=== PATIENT | male | born 1990 | race Caucasian/White ===

== ENCOUNTER 2022-04-12 04:04 | Emergency (ER) | payer OTHER ==
[~2022-04-12] VITALS: Ht 177.8 cm; Wt 108.9 kg
[2022-04-12 04:10] VITALS: BP_SYST 135
--- NOTE | 2022-04-12 04:17 | NUR ---
Patient to ER bed 8 to gown for evaluation. Side rails up. Report given to Radha CELESTIN(reg).
--- NOTE | 2022-04-12 05:00 | NUR ---
ASSESSED, AO X4, SPEECH CLEAR AND COHERENT NOT IN ANY DISTRESS.PIV #20 STARTED TO RAC , LABS DRAWN AND SENT ORDERED. PATIENT TOLERATED PROCEDURE WELL
--- NOTE | 2022-04-12 06:15 | NUR ---
Electric [employer] Operator at the bedside for blood drawn.
--- NOTE | 2022-04-12 06:16 | NUR ---
ER at bedside examining patient.
[2022-04-12 06:41] LABS: BASOPHILS # (AUTO) 0.1 K/uL (0.0-0.2); BASOPHILS % (AUTO) 1.1 % (0.0-2.0); EOSINOPHILS # (AUTO) 0.1 K/uL (0.0-0.4); EOSINOPHILS % (AUTO) 1.1 % (0.0-4.0); HEMATOCRIT 43.5 % (36-54); HEMOGLOBIN 14.8 g/dL (14.0-18.0); LYMPHOCYTES # (AUTO) 0.8 K/uL (1.0-5.5); LYMPHOCYTES % (AUTO) 6.3 % (20.5-51.5); MEAN CORPUSCULAR HEMOGLOBIN 30 pg (27-31); MEAN CORPUSCULAR HGB CONC 34 % (32-36); MEAN CORPUSCULAR VOLUME 87 fL (79.0-98.0); MONOCYTES # (AUTO) 1.1 K/uL (0.0-1.0); MONOCYTES % (AUTO) 8.8 % (1.7-9.3); NEUTROPHILS # (AUTO) 9.9 K/uL (1.8-7.7); NEUTROPHILS % (AUTO) 82.7 % (40.0-70.0); PLATELET COUNT (AUTO) 231 K/uL (130-430); RED BLOOD CELL COUNT(AUTO) 4.98 MIL/uL (4.2-6.2); RED CELL DISTRIBUTION WIDTH 13.1 % (9.0-15.0)
[2022-04-12 06:58] LABS: CALCIUM 8.7 mg/dL (8.4-11.0); CREATININE 1.02 mg/dL (0.55-1.30)
[2022-04-12 07:05] LABS: ALBUMIN 3.8 g/dL (3.4-4.8); TOTAL BILIRUBIN 0.5 mg/dL (0.0-1.0)
[2022-04-12] MEDS ORDERED: LOM2.5 PO (07:20)
--- NOTE | 2022-04-12 07:32 | NUR ---
Patient given written and verbal discharge instructions and verbalizes understanding. ER MD discussed with patient the results and treatment provided. Patient in stable condition. ID arm band removed. IV catheter removed intact and dressing applied, no active bleeding. Opportunity for questions provided and answered. Medication side effect fact sheet provided.
--- NOTE | 2022-04-12 07:32 | NUR ---
PT AWAITING TRANSPORTATION FROM FAMILY. CONTACTED [phone] [facility] [place].
[2022-04-12 07:33] VITALS: BP_SYST 134
== END 2022-04-12 07:33 | disposition home or self-care (01) ==
LOC: SED 04:04
DX: R55 Syncope and collapse (principal); R05.9 Cough, unspecified; R19.7 Diarrhea, unspecified; Z79.899 Other long term (current) drug therapy
CPT/HCPCS: 36415; 71045; 80053; 85025; 93005; 99285